=== PATIENT | male | born 1955 | race Caucasian/White ===

== ENCOUNTER 2019-02-21 14:49 | Inpatient (IN) | payer OTHER ==
[~2019-02-21] VITALS: Ht 195.6 cm; Wt 78.9 kg
[2019-02-21] VITALS (25 sets, daily range): BP systolic 85–112; BP diastolic 54–66
[~2019-02-21 14:49] MED LIST: BACTRIM DS TAB1 EACH PO; CIPROFLOXACIN500 M1 PO; CLONIDINE0.1 PO; K-DUR 20 MEQ T20 MEQ PO; KEFLEX500 MG PO; NOHOMEMEDICATIONS; POTASSIUM20 PO
[2019-02-21 15:26] LABS: MCH 40.8 pg (26.0-34.0); MCV 120.1 fL (80.0-100.0); PLATELET COUNT 285 thou/uL (150-400); RBC 1.36 mil/uL (4.50-6.00); RDW 15.4 % (10.5-14.5); WBC 9.8 thou/uL (4.0-11.0)
[2019-02-21 15:33] LABS: ANION GAP 12 mmol/L (7-16); BUN 10 mg/dL (7-18); CALCIUM 8.4 mg/dL (8.5-10.1); CHLORIDE 103 mmol/L (98-107); CO2 24 mmol/L (21-32); CREATININE 0.8 mg/dL (0.7-1.3); GLUCOSE 109 mg/dL (74-106); HEMATOCRIT 16.4 % (42.0-52.0); HEMOGLOBIN 5.6 gm/dL (14.0-18.0); POTASSIUM 3.4 mmol/L (3.5-5.1); SODIUM 139 mmol/L (136-145)
[2019-02-21 15:39] LABS: ALBUMIN 2.6 g/dL (3.4-5.0); DIRECT BILIRUBIN < 0.1 mg/dL (<0.1-0.3); LIPASE 318 U/L (73-393); SGOT 53 U/L (15-37); SGPT 23 U/L (30-65); TOTAL BILIRUBIN 0.2 mg/dL (<0.1-1.0); TOTAL PROTEIN 6.2 g/dL (6.4-8.2)
[2019-02-21 15:49] LABS: ABSOLUTE NEUTROPHILS 8.2 thou/uL (1.4-8.2)
[2019-02-21 15:50] LABS: MACROCYTES 3+
[2019-02-21 15:51] LABS: POLYCHROMASIA 1+
[2019-02-21] MEDS ORDERED: NORVASC5 MG PO (16:52)
[2019-02-21 17:47] LABS: APTT 20.5 Seconds (24.5-32.8)
--- NOTE | 2019-02-21 19:56 | NUR ---
REPORT RECEIVED FROM PREVIOUS RN. PT ADMITTED 1838, TO ICU # 245 WITH DIAGNOSIS: GI BLEED. ALERT/ORIENTED, COOPERATIVE, PALE/JAUNDICED, SR, PROTONIX GTT INFUSING, NO BLEEDING AT THIS TIME. SEVERAL CONSENTS SIGNED. MARYCARMEN IV TEAM RN PRESENT TO INSERT PICC LINE. TIME OUT COMPLETED. REPORT TO MIRTA SONG.
--- NOTE | 2019-02-21 20:06 | NUR ---
VASCULAR ACCESS CONSULTED FOR PICC PLACEMENT. PT'S LABS,MEDS,HISTORY,ORDER AND CONSENT VERIFIED. DISCUSSED BENEFITS AND RISK OF PICC WITH PT,VERBALIZED UNDERSTANDING. CABRERA BASILIC WAS WIDELY PATENT WITH USG,1% LIDOCAINE GIVEN SC. 5FR TL POWER PICC TRIMMED TO 46CM INSERTED TO 2CM EXTERNAL PER HOSPITAL PROTOCOL. STAT CXR ORDERED.
--- NOTE | 2019-02-21 20:34 | NUR ---
PICC released for immediate use per protocol to Luisito KIRBY. CXR CONFIRMED PLACEMENT
[2019-02-22] VITALS (62 sets, daily range): BP systolic 93–138; BP diastolic 54–93
[2019-02-22 05:40] LABS: HEMOGLOBIN 6.5 gm/dL (14.0-18.0); WBC 6.7 thou/uL (4.0-11.0)
[2019-02-22 05:42] LABS: MCH 37.5 pg (26.0-34.0); MCHC 34.8 g/dL (28.0-37.0); RBC 1.73 mil/uL (4.50-6.00)
[2019-02-22 05:57] LABS: HEMATOCRIT 18.6 % (42.0-52.0); MCV 107.7 fL (80.0-100.0)
[2019-02-22 05:59] LABS: CALCIUM 7.7 mg/dL (8.5-10.1); CREATININE 0.8 mg/dL (0.7-1.3); POTASSIUM 3.4 mmol/L (3.5-5.1); TOTAL BILIRUBIN 0.4 mg/dL (<0.1-1.0); TOTAL PROTEIN 5.1 g/dL (6.4-8.2)
--- NOTE | 2019-02-22 06:30 | NUR ---
END OF SHIFT SUMMARY: No progress toward goals at this point. Pt remain sinus rhythm - sinus bradycardia, rate 55-67. MAP remains > 60. Pt received 2 upcs during night without sign/symptom of reaction. Hgb only up to 6.5 this a.m., Hct critical low 18.6, called to [employer]. Serum potassium boderline at 3.4. Will not replace at this time since pt will be receiving another unit of blood, and continue to monitor. Pt remains on room air, sat > 95%. No nausea, vomitting or bloody stools this shift. Pt remains NPO. Plan for EGD this a.m.
--- NOTE | 2019-02-22 07:30 | NUR ---
ASSUMED CARE FORM NIGHT NURSE. LABS NOTED AND UNIT OF PRBC'S BEING SET UP. ASSESSMENT DONE. PLAN OF CARE AND GOALS SET BY PATIENT.
--- NOTE | 2019-02-22 10:45 | NUR ---
UPON REMOVING SCD SLEEVES AND SOCK ABRASIONS TO RT GUERRA AND LEFT KNEE NOTED. AREAS ARE SCABBED OVER WITH NO REDDNESS OR DRAINAGE NOTED. LEFT GREAT TOE BRUISED AND PAINFUL WITH MOVEMENT, GREAT TOE TAPED TO NEXT TOE, RETAPED USING COTTON BALL TO CUSHION BETWEEN TOES. STATED THAT HE MISSED A STEP A WEEK AGO AND FELL GOING UP THE STEPS.
[2019-02-22 12:15] LABS: HEMATOCRIT 22.1 % (42.0-52.0); HEMOGLOBIN 7.7 gm/dL (14.0-18.0)
--- NOTE | 2019-02-22 12:20 | NUR ---
TO GI LAB PER BED WITH PORTABLE MONITOR.
[2019-02-22 12:25] LABS: POTASSIUM 3.6 mmol/L (3.5-5.1)
--- NOTE | 2019-02-22 13:30 | NUR ---
RETURNED FROM GI LAB PER BED, ASSESSMENT UNCHANGED. REPORT RECEIVED FROM GI LAB.
--- NOTE | 2019-02-22 16:40 | NUR ---
INITIAL ASSESSMENT: Received consult for discharge planning. SW reviewed chart and spoke with nursing and attending physician. Pt was admitted from home due to upper GI bleed/anemia. Pt had EGD earlier today. Hgb was 5.6 at time of admission. Pt with hx of daily ETOH use. Pt to have colonoscopy tomorrow per GI. SW met with pt at bedside. Introduced role of SW. Pt is alert/orientated x 4. Pt reports he lives at home with his , dtr and grand dtr. Prior to admission, pt was independent with ADLs. No use of DME. Pt and family live in a multi-level home. 2 steps to enter the home. Pt states he is able to navigate the stairs independently. No hx of HH services or SNF/Rehab placement. Pt's PCP is Dr. North Cisneros. Plan is for pt to return home when medically stable. SW is following to assist as needed with discharge planning.
--- NOTE | 2019-02-22 18:22 | EKG ---
[place] [address] [facility] [place] [address] ELECTROCARDIOGRAM REPORT Name: BROCKANABELLE Babar Room #: 245-P ADM IN M.R.#: [id number] ������������������ Admission: 02/21/19 ������������������ Attend Phys: Greg Agudelo Discharge: ������������������ Date of : 55 Report #: [id number] ����������������������������������������������������������������� [id number] THIS REPORT FOR: //name// [facility] ED Test Date: 2019-02-21 Test Time: 15:04:57 Pat Name: ANABELLE GUTIÉRREZ Department: Room: [facility] Gender: M Online Producer: mary ann : 1955 Requested By: Melany Jenkins Order Number: [id number] MD: Baljinder Stewart Measurements Intervals [place] Rate: 74 P: 22 SC: 163 QRS: 49 QRSD: 109 T: 29 QT: 434 QTc: 482 Interpretive Statements Sinus rhythm Borderline prolonged QT interval No previous ECG available for comparison Electronically Signed On 02-22-2019 18:22:40 CDT by Baljinder Stewart [email or web address] ��������������������������������������������� <ELECTRONICALLY SIGNED> ���������������������������������������� By: Baljinder Stewart MD, [facility] ��������������������������������������������� 02/22/19 1822 1504 1504 Baljinder Stewart MD, FACC /EPI
--- NOTE | 2019-02-22 18:25 | NUR ---
PATIENT PROGRESSING TOWARDS OUTCOME GOALS EVIDENT BY HEMAGLOBIN GREATER THAN 7. STOOLS ARE BROWN AND FORMED. VSS. PREP FOR COLONSCOPY INITIATED.
[2019-02-23] VITALS (9 sets, daily range): BP systolic 98–120; BP diastolic 54–72
[2019-02-23 05:32] LABS: HEMATOCRIT 22.1 % (42.0-52.0); HEMOGLOBIN 7.7 gm/dL (14.0-18.0); MCH 35.8 pg (26.0-34.0); MCHC 34.8 g/dL (28.0-37.0); MCV 102.9 fL (80.0-100.0); RBC 2.15 mil/uL (4.50-6.00); RDW 26.2 % (10.5-14.5); WBC 7.2 thou/uL (4.0-11.0)
--- NOTE | 2019-02-23 05:57 | NUR ---
END OF SHIFT SUMMARY: Progressing toward discharge goals. No nausea, vomitting, or signs of blood in stool overnight. Hgb and hct remain stable. Tolerated bowel prep well; last stool brown tinged liquid, almost clear. Voiding without difficulty. Skin still jaundiced but less barrios tinge. O2 sat remains > 95% on room air. Monitor sinus mere - sinus rhythm, rates 49-68. Plan for colonscopy this a.m. Pt has been NPO since midnight.
[2019-02-23] MEDS ORDERED: PROTONIX40 M1 PO (08:54)
--- NOTE | 2019-02-23 09:49 | NUR ---
PATIENT ALERT AND ORIENTED, VITALS STABLE. OUT OF ROOM TO GI FOR COLONOSCOPY AT AROUND 0730 AND NOW BACK IN THE ROOM. DENIES PAIN. DC ORDERS IN [facility] AND PATIENT HAS CALLED SPOUSE REGARDING DISCHARGE.
--- NOTE | 2019-02-23 10:51 | NUR ---
PICC LINE DC'D, DISCHARGE PAPERWORK AND NEW PRESCRIPTION GIVEN TO PATIENT AND SPOUSE. PATIENT DC'D AT 1045 ACCOMPANIED BY SPOUSE.
--- NOTE | 2019-02-23 12:14 | NUR ---
DISCHARGE NOTE: SW reviewed chart and spoke with attending physician. Pt had colonoscopy this morning per GI. Pt medically stable for discharge home today. Discharge orders written. No SW needs identified at this time. Pt's family provided transportation home. Case closed.
--- NOTE | 2019-02-24 14:06 | PATH ---
[facility] [address] [address] PATHOLOGY RPT PROCEDURE Name: ANABELLE SR Room #: 245-P [facility] IN M.R.#: [id number] ������������������ Admission: 02/21/19 ������������������ Date of : 55 Discharge: 02/23/19 Report #: [id number] Path Case #: [id number] [facility] Accession Number: [id number] . 01 Material submitted: . PART A: colon - BX POLYP AT ASCENDING COLON. Modifiers: ascending PART B: colon - POLYP AT SIGMOID COLON . 01 Clinical history: . GI bleed Colon polyps, diverticulosis . 02 Diagnosis: A. Colon, ascending, biopsy: - Adenomatous polyp. . B. Colon, sigmoid, biopsy: - Adenomatous polyp, one. - Hyperplastic polyp, one. (MAURISIO:erica; 02/24/2019) QTP/02/24/2019 . 02 Electronically signed: . Ad Valenzuela MD, Pathologist NPI- [id number] . 01 Gross description: . A. The specimen is received in formalin, labeled "Anabelle Sr, BX polyp at ascending colon" and consists of a fragment of day tissue measuring 0.3 x 0.2 x 0.2 cm which is entirely submitted in A1. . B. The specimen is received in formalin, labeled "Anabelle Sr, polyp at sigmoid colon" and consists of 2 fragments of pink-day tissue measuring 0.5 x 0.2 cm and 0.7 x 0.2 cm which are entirely submitted in B1. (SDY; 02/23/2019) SYU/SYU . 02 Pathologist provided ICD-10: D12.2, D12.5, K63.5 . 02 CPT . 531711, [id number] Specimen Comment: A courtesy copy of this report has been sent to Specimen Comment: [phone], , . Specimen Comment: Report sent to ,DR OLIVER / DR NIXON Performed at: [address] [place] [address] PATHOLOGY RPT PROCEDURE Name: ANABELLE SR Room #: 245-P DIS IN M.R.#: [id number] ������������������ Admission: 02/21/19 ������������������ Date of : 55 Discharge: 02/23/19 Report #: [id number] Path Case #: [id number] [address] [facility] [address], [place] [id number] MD Sanjiv Melgar MD Phone: [phone] Performed at: [address] [id number] MD Gin Chavez MD Phone: [phone]
== END 2019-02-23 10:45 | disposition home or self-care (01) | DRG 377 ==
LOC: ER 14:49 → ICU 16:10 → EROBS 16:10 → ICU 18:16
PROVIDERS: Nurse Practitioner; ADMIT Hospitalist
PROC: 30233N1 Transfusion of Nonautologous Red Blood Cells into Peripheral Vein, Percutaneous Approach (ICD-10-PCS; principal; 2019-02-21)
PROC: B548ZZA Ultrasonography of Superior Vena Cava, Guidance (ICD-10-PCS; principal; 2019-02-21)
PROC: 02HV33Z Insertion of Infusion Device into Superior Vena Cava, Percutaneous Approach (ICD-10-PCS; principal; 2019-02-21)
PROC: 0DJ08ZZ Inspection of Upper Intestinal Tract, Via Natural or Artificial Opening Endoscopic (ICD-10-PCS; principal; 2019-02-21)
PROC: 0DBN8ZZ Excision of Sigmoid Colon, Via Natural or Artificial Opening Endoscopic (ICD-10-PCS; 2019-02-23)
PROC: 0DBK8ZZ Excision of Ascending Colon, Via Natural or Artificial Opening Endoscopic (ICD-10-PCS; 2019-02-23)
DX: K57.31 Diverticulosis of large intestine without perforation or abscess with bleeding (principal); R57.8 Other shock; D62 Acute posthemorrhagic anemia; F17.210 Nicotine dependence, cigarettes, uncomplicated; F10.20 Alcohol dependence, uncomplicated; Y90.9 Presence of alcohol in blood, level not specified; K64.8 Other hemorrhoids; K63.5 Polyp of colon; Z90.89 Acquired absence of other organs; Z79.899 Other long term (current) drug therapy; Z90.49 Acquired absence of other specified parts of digestive tract
CPT/HCPCS: 10078; 27000; 62110; 62900; 85076